=== PATIENT | female | born 1990 | race Asian ===

== ENCOUNTER → 2017-02-04 | Outpatient (CLI) | payer OTHER ==
[~2017-02-04] MED LIST: ALBU17IN2 INH; LEVA750T7 PO; MUCI600T37 PO; NAPRPOW4 PO; TRAZ50TA2 PO; VENLAFAXINE PO
[2017-02-04 13:12] LABS: ESTRADIOL 33.9 PG/ML; LUTEINIZING HORMONE 9.1 mIU/mL
== END ==
LOC: M LRY 08:09
PROVIDERS: ATTEND Obstetrics & Gynecology Reproductive Endocrinology
DX: N97.9 Female infertility, unspecified (principal)

== ENCOUNTER → 2017-02-27 | Outpatient (CLI) | payer OTHER ==
[2017-02-27 11:33] LABS: HCG, SERUM QUANTITATIVE < 1.0 MIU/ML
[2017-02-27 12:20] LABS: ESTRADIOL 30.1 PG/ML
== END ==
LOC: M LRY 08:31
PROVIDERS: ATTEND Obstetrics & Gynecology Reproductive Endocrinology
DX: N97.9 Female infertility, unspecified (principal)

== ENCOUNTER → 2017-03-09 | Outpatient (CLI) | payer OTHER ==
[2017-03-09 12:49] LABS: ESTRADIOL 100.7 PG/ML; LUTEINIZING HORMONE 6.9 mIU/mL
== END ==
LOC: M LRY 09:44
PROVIDERS: ATTEND Obstetrics & Gynecology Reproductive Endocrinology
DX: N97.9 Female infertility, unspecified (principal)

== ENCOUNTER → 2017-03-11 | Outpatient (CLI) | payer OTHER ==
[2017-03-11 11:57] LABS: LUTEINIZING HORMONE 80.6 mIU/mL
[2017-03-11 11:58] LABS: ESTRADIOL 242.7 PG/ML
== END ==
LOC: M LRY 08:06
PROVIDERS: ATTEND Obstetrics & Gynecology Reproductive Endocrinology
DX: N97.9 Female infertility, unspecified (principal)

== ENCOUNTER → 2017-03-27 | Outpatient (CLI) | payer OTHER | LOC: M LRY 08:39 | PROVIDERS: ATTEND Obstetrics & Gynecology Reproductive Endocrinology | DX: Z32.00 Encounter for pregnancy test, result unknown (principal) ==

== ENCOUNTER → 2017-03-30 | Outpatient (CLI) | payer OTHER ==
[2017-03-30 12:54] LABS: ESTRADIOL 36.8 PG/ML
[2017-03-30 13:06] LABS: HCG, SERUM QUANTITATIVE < 1.0 MIU/ML
== END ==
LOC: M LRY 09:15
PROVIDERS: ATTEND Obstetrics & Gynecology Reproductive Endocrinology
DX: N97.9 Female infertility, unspecified (principal)

== ENCOUNTER → 2017-04-08 | Outpatient (CLI) | payer OTHER ==
[2017-04-08 11:55] LABS: LUTEINIZING HORMONE 8.2 mIU/mL
[2017-04-08 11:56] LABS: ESTRADIOL 33.1 PG/ML
== END ==
LOC: M LRY 07:51
PROVIDERS: ATTEND Obstetrics & Gynecology Reproductive Endocrinology
DX: N97.9 Female infertility, unspecified (principal)

== ENCOUNTER → 2017-04-13 | Outpatient (CLI) | payer OTHER ==
[2017-04-13 11:35] LABS: LUTEINIZING HORMONE 66.3 mIU/mL
== END ==
LOC: M LRY 09:24
PROVIDERS: ATTEND Obstetrics & Gynecology Reproductive Endocrinology
DX: N97.9 Female infertility, unspecified (principal)

== ENCOUNTER → 2017-05-11 | Outpatient (CLI) | payer OTHER ==
[2017-05-11 12:04] LABS: LUTEINIZING HORMONE 10.6 mIU/mL
== END ==
LOC: M LRY 08:56
PROVIDERS: ATTEND Obstetrics & Gynecology Reproductive Endocrinology
DX: N97.9 Female infertility, unspecified (principal)

== ENCOUNTER → 2017-05-14 | Outpatient (CLI) | payer OTHER ==
[2017-05-14 11:52] LABS: ESTRADIOL 49.7 PG/ML; LUTEINIZING HORMONE 10.3 mIU/mL
== END ==
LOC: M LRY 08:31
PROVIDERS: ATTEND Obstetrics & Gynecology Reproductive Endocrinology
DX: N97.9 Female infertility, unspecified (principal)

== ENCOUNTER → 2017-05-18 | Outpatient (CLI) | payer OTHER ==
[2017-05-18 12:03] LABS: ESTRADIOL 78.8 PG/ML; LUTEINIZING HORMONE 11.8 mIU/mL
== END ==
LOC: M LRY 09:32
PROVIDERS: ATTEND Obstetrics & Gynecology Reproductive Endocrinology
DX: N97.9 Female infertility, unspecified (principal)

== ENCOUNTER → 2017-05-20 | Outpatient (CLI) | payer OTHER ==
[2017-05-20 12:11] LABS: LUTEINIZING HORMONE 68.3 mIU/mL
[2017-05-20 12:12] LABS: ESTRADIOL 148.2 PG/ML
== END ==
LOC: M LRY 08:01
PROVIDERS: ATTEND Obstetrics & Gynecology Reproductive Endocrinology
DX: N97.9 Female infertility, unspecified (principal)

== ENCOUNTER → 2017-06-03 | Outpatient (CLI) | payer OTHER | LOC: M LRY 09:26 | PROVIDERS: ATTEND Obstetrics & Gynecology Reproductive Endocrinology | DX: Z32.00 Encounter for pregnancy test, result unknown (principal) ==

== ENCOUNTER → 2017-09-01 | Outpatient (CLI) | payer OTHER ==
[2017-09-01 10:56] LABS: HCG, SERUM QUANTITATIVE < 1.0 MIU/ML
[2017-09-01 11:47] LABS: PROGESTERONE 0.5 NG/ML
== END ==
LOC: M LRY 07:49
DX: N97.9 Female infertility, unspecified (principal)

== ENCOUNTER → 2017-09-11 | Outpatient (CLI) | payer OTHER ==
[2017-09-11 11:55] LABS: HCG, SERUM QUANTITATIVE < 1.0 MIU/ML
[2017-09-11 12:24] LABS: ESTRADIOL 39.3 PG/ML
== END ==
LOC: M LRY 07:47
DX: N97.9 Female infertility, unspecified (principal)
CPT/HCPCS: 84702

== ENCOUNTER → 2017-09-15 | Outpatient (CLI) | payer OTHER ==
[2017-09-15 11:59] LABS: LUTEINIZING HORMONE 6.3 mIU/mL
[2017-09-15 11:59] LABS: ESTRADIOL 74.2 PG/ML
== END ==
LOC: M LRY 07:47
DX: N97.9 Female infertility, unspecified (principal)
CPT/HCPCS: 83002

== ENCOUNTER → 2017-09-18 | Outpatient (CLI) | payer OTHER ==
[2017-09-18 12:27] LABS: LUTEINIZING HORMONE 5.2 mIU/mL
[2017-09-18 12:27] LABS: ESTRADIOL 121.7 PG/ML
== END ==
LOC: M LRY 07:47
DX: N97.9 Female infertility, unspecified (principal)

== ENCOUNTER → 2017-09-21 | Outpatient (CLI) | payer OTHER ==
[2017-09-21 11:58] LABS: LUTEINIZING HORMONE 7.8 mIU/mL
[2017-09-21 11:59] LABS: ESTRADIOL 343.2 PG/ML
== END ==
LOC: M LRY 07:37
DX: N97.9 Female infertility, unspecified (principal)

== ENCOUNTER → 2017-10-08 | Outpatient (CLI) | payer OTHER ==
[2017-10-08 11:36] LABS: HCG, SERUM QUANTITATIVE < 1.0 MIU/ML
== END ==
LOC: M LRY 07:32
DX: Z32.00 Encounter for pregnancy test, result unknown (principal)
CPT/HCPCS: 84702

== ENCOUNTER → 2017-10-09 | Outpatient (CLI) | payer OTHER ==
[2017-10-09 12:24] LABS: HCG, SERUM QUANTITATIVE < 1.0 MIU/ML
== END ==
LOC: M LRY 07:42
DX: N97.9 Female infertility, unspecified (principal)
CPT/HCPCS: 84702

== ENCOUNTER → 2017-10-13 | Outpatient (CLI) | payer OTHER ==
[2017-10-13 11:26] LABS: LUTEINIZING HORMONE 2.2 mIU/mL
[2017-10-13 11:26] LABS: ESTRADIOL 49.7 PG/ML
== END ==
LOC: M LRY 08:05
DX: N97.9 Female infertility, unspecified (principal)
CPT/HCPCS: 83002

== ENCOUNTER → 2017-10-16 | Outpatient (CLI) | payer OTHER ==
[2017-10-16 12:01] LABS: LUTEINIZING HORMONE 3.3 mIU/mL
[2017-10-16 12:03] LABS: ESTRADIOL 57.5 PG/ML
== END ==
LOC: M LRY 07:27
DX: N97.9 Female infertility, unspecified (principal)

== ENCOUNTER → 2017-10-19 | Outpatient (CLI) | payer OTHER ==
[2017-10-19 11:47] LABS: LUTEINIZING HORMONE 3.8 mIU/mL
[2017-10-19 11:48] LABS: ESTRADIOL 144.2 PG/ML
== END ==
LOC: M LRY 07:34
DX: N97.9 Female infertility, unspecified (principal)
CPT/HCPCS: 83002

== ENCOUNTER → 2017-10-21 | Outpatient (CLI) | payer OTHER ==
[2017-10-21 12:27] LABS: LUTEINIZING HORMONE 4.8 mIU/mL
[2017-10-21 12:28] LABS: ESTRADIOL 330.3 PG/ML
== END ==
LOC: M LRY 07:58
DX: N97.9 Female infertility, unspecified (principal)
CPT/HCPCS: 83002

== ENCOUNTER → 2017-10-23 | Outpatient (CLI) | payer OTHER ==
[2017-10-23 12:00] LABS: LUTEINIZING HORMONE 9.5 mIU/mL
[2017-10-23 12:01] LABS: ESTRADIOL 783.4 PG/ML
== END ==
LOC: M LRY 08:41
DX: N97.9 Female infertility, unspecified (principal)
CPT/HCPCS: 83002

== ENCOUNTER → 2017-11-09 | Outpatient (CLI) | payer OTHER | LOC: M LRY 10:28 | DX: N97.9 Female infertility, unspecified (principal) ==

== ENCOUNTER → 2018-03-22 | Outpatient (CLI) | payer OTHER ==
[2018-03-22 12:24] LABS: HCG, SERUM QUANTITATIVE 13577 MIU/ML
[2018-03-22 13:44] LABS: ESTRADIOL 3142.4 PG/ML
[2018-03-22 13:44] LABS: PROGESTERONE 102.5 NG/ML
== END ==
LOC: M LRY 08:08
DX: O09.00 Supervision of pregnancy with history of infertility, unspecified trimester (principal); Z3A.00 Weeks of gestation of pregnancy not specified
CPT/HCPCS: 84443

== ENCOUNTER → 2018-03-29 | Outpatient (CLI) | payer OTHER ==
[2018-03-29 14:31] LABS: ESTRADIOL 2943.4 PG/ML
[2018-03-29 14:31] LABS: PROGESTERONE 70.7 NG/ML
[2018-03-29 14:37] LABS: CONTROL LINE HCG INT CTR LINE PRESENT; HCG, SERUM QUALITATIVE POSITIVE (NEGATIVE)
== END ==
LOC: M LRY 08:32
DX: O09.00 Supervision of pregnancy with history of infertility, unspecified trimester (principal)
CPT/HCPCS: 84443

== ENCOUNTER → 2018-04-06 | Outpatient (CLI) | payer OTHER ==
[2018-04-06 13:01] LABS: HCG, SERUM QUANTITATIVE 41976 MIU/ML
[2018-04-06 13:06] LABS: PROGESTERONE 58.1 NG/ML
[2018-04-06 13:07] LABS: ESTRADIOL 2755.9 PG/ML
== END ==
LOC: M LRY 08:39
DX: O09.00 Supervision of pregnancy with history of infertility, unspecified trimester (principal)

== ENCOUNTER 2018-05-04 18:37 | Emergency (ER) | payer OTHER ==
[2018-05-04 19:52] LABS: BASO # 0.1 10^3/uL (0.0-0.2); BASO % 0.4 % (0.0-1.0); EOS % 0.3 % (0.0-3.0); HEMOGLOBIN 9.8 g/dl (12.0-15.5); IMMATURE GRANULOCYTE % 0.4 % (0-3.0); LYMPH # 2.4 10^3/uL (1.5-6.5); LYMPH % 18.9 % (24.0-44.0); MEAN CORPUSCULAR HEMOGLOBIN 19.9 pg (27.0-33.0); MEAN CORPUSCULAR HGB CONC 33.8 g/dl (32.0-36.5); MEAN CORPUSCULAR VOLUME 58.9 fl (80.0-96.0); MONO # 0.9 10^3/uL (0.0-0.8); MONO % 7.1 % (0.0-5.0); NEUTROPHILS # 9.4 10^3/uL (1.8-7.7); NEUTROPHILS % 72.9 % (36.0-66.0); PLATELET COUNT, AUTOMATED 245 10^3/uL (150-450); RED BLOOD COUNT 4.92 10^6/uL (4.00-5.40); RED CELL DISTRIBUTION WIDTH 15.2 % (11.5-14.5); WHITE BLOOD COUNT 12.9 10^3/uL (4.0-10.0)
[2018-05-04 19:56] LABS: ANION GAP 12 MEQ/L (8-16); BLOOD UREA NITROGEN 7 MG/DL (7-18); CALCIUM LEVEL 9.4 MG/DL (8.5-10.1); CARBON DIOXIDE LEVEL 22 MEQ/L (21-32); CHLORIDE LEVEL 104 MEQ/L (98-107); CREATININE FOR GFR 0.62 MG/DL (0.55-1.30); GLOMERULAR FILTRATION RATE > 60.0 (>60); GLUCOSE, FASTING 102 MG/DL (70-100); POTASSIUM SERUM 3.8 MEQ/L (3.5-5.1); SODIUM LEVEL 138 MEQ/L (136-145)
== END 2018-05-04 20:42 | disposition home or self-care (01) ==
LOC: M ED 18:37
DX: O20.9 Hemorrhage in early pregnancy, unspecified (principal); O99.011 Anemia complicating pregnancy, first trimester; O99.341 Other mental disorders complicating pregnancy, first trimester; F41.9 Anxiety disorder, unspecified; F32.9 Major depressive disorder, single episode, unspecified; F43.10 Post-traumatic stress disorder, unspecified; Z3A.12 12 weeks gestation of pregnancy
CPT/HCPCS: 76801

== ENCOUNTER → 2018-05-24 | Outpatient (CLI) | payer OTHER | LOC: M EKG 11:05 | DX: Z3A.12 12 weeks gestation of pregnancy (principal); O24.111 Pre-existing type 2 diabetes mellitus, in pregnancy, first trimester | CPT/HCPCS: 93005 ==

== ENCOUNTER 2018-07-15 22:21 | Outpatient (CLI) | payer OTHER ==
[~2018-07-15] VITALS: Ht 154.9 cm; Wt 76.3 kg
[~2018-07-15 22:21] MED LIST changes: +FERR325T18 PO; +PRENCHW PO; +SERT25TA88 PO
[2018-07-15 22:27] VITALS: BP 128/91
[2018-07-15] MEDS ORDERED: LR 1,000 ML IV SCH (23:18)
[2018-07-15] MEDS ORDERED: LACTATED RINGER'S 1000 ML IV STA (23:18)
[2018-07-16 00:07] LABS: HEMATOCRIT 25.8 % (36.0-47.0); HEMOGLOBIN 8.8 g/dl (12.0-15.5); MEAN CORPUSCULAR HEMOGLOBIN 21.2 pg (27.0-33.0); MEAN CORPUSCULAR HGB CONC 34.1 g/dl (32.0-36.5); PLATELET COUNT, AUTOMATED 169 10^3/uL (150-450); RED BLOOD COUNT 4.16 10^6/uL (4.00-5.40); WHITE BLOOD COUNT 10.8 10^3/uL (4.0-10.0)
[2018-07-16 00:08] LABS: INR 0.9; PROTHROMBIN TIME 12.2 SECONDS (12.1-14.4)
[2018-07-16 00:09] LABS: PARTIAL THROMBOPLASTIN TIME 25.3 SECONDS (25.4-37.6)
--- NOTE | 2018-07-16 01:25 | REPVR ---
EXAM: US Doppler Velocimetry of the Umbilical Artery EXAM DATE/TIME: 07/15/2018 12:35 AM CLINICAL HISTORY: 28 years old, female; Signs and symptoms; Lmp or gestational age (in weeks): 23w 0d; Other: Vaginal bleeding; ; Patient HX: Patient has known previa, iugr, and oligo; Additional info: 22w6d oligo/iugr bleed w/previa/ please perform growth scan TECHNIQUE: US Doppler velocimetry of the umbilical artery with Doppler color and waveform analysis. COMPARISON: No relevant prior studies available. FINDINGS: Umbilical artery Doppler: Umbilical artery is not well seen. Umbilical artery waveforms: Waveforms are within normal limits for age. Umbilical artery systolic to diastolic ratio: S./D. ratio is 3.7. IMPRESSION: Unremarkable umbilical Doppler for age. EXAM: US Doppler Velocimetry of the Middle Cerebral Artery EXAM DATE/TIME: 07/15/2018 12:35 AM CLINICAL HISTORY: 28 years old, female; Signs and symptoms; Lmp or gestational age (in weeks): 23w 0d; Other: Vaginal bleeding; ; Patient HX: Patient has known previa, iugr, and oligo; Additional info: 22w6d oligo/iugr bleed w/previa/ please perform growth scan TECHNIQUE: US Doppler velocimetry of the middle cerebral artery with Doppler color and waveform analysis. COMPARISON: No relevant prior studies available. FINDINGS: Middle cerebral arteries: Middle cerebral arteries are patent. MCA peak systolic velocity: Peak systolic velocity is within normal limits for age. Peak systolic velocity is 32 cm/s. S/D. ratio is 4.4. IMPRESSION: Unremarkable middle cerebral artery Doppler for age. EXAM: US After First Trimester, Transabdominal EXAM DATE/TIME: 07/15/2018 12:35 AM CLINICAL HISTORY: 28 years old, female; Signs and symptoms; Lmp or gestational age (in weeks): 23w 0d; Other: Vaginal bleeding; ; Patient HX: Patient has known previa, iugr, and oligo; Additional info: 22w6d oligo/iugr bleed w/previa/ please perform growth scan TECHNIQUE: Real-time transabdominal obstetrical ultrasound of the maternal pelvis and a second or third trimester with image documentation. COMPARISON: 05/04/2018. FINDINGS: GESTATION: Gestation: Single live intrauterine gestation. Heart rate: heart rate measures 163 beats per minute. Presentation: Breech position. Placenta: Placenta is anterior. Complete placenta previa. Amniotic fluid: Anhydramnios. MALLIKA is 0.8. Head, face, and neck: Lateral ventricles are unremarkable. Remaining anatomy is limited. Heart: Heart is obscured by position. Abdomen: Bladder is unremarkable. Stomach is unremarkable. Umbilical cord and insertion: Umbilical cord insertion is obscured by position. Spine: Spinal anatomy is obscured by position. Extremities: Extremities are obscured by position. BIOMETRY: Estimated gestational age: Estimated gestational age 18 weeks 3 days days by ultrasound. Estimated due date: Estimated date 11/12/2018 AUA. Estimated weight: Estimated weight is 233 g. Less than 3 percentile. Biparietal diameter: BPD is 41 mm. 18 weeks 4 days. Head circumference: Head circumference is 163 mm. 19 weeks 1 day. Abdominal circumference: 127 mm. 18 weeks 2 days. Femur length: Femur length is 27 mm. 18 weeks 1 day. MATERNAL: Uterus: Unremarkable. Cervix: Cervix measures 3.8 cm in length the cervix is long and closed. Ovaries: Left ovary measures 3.4 x 2.3 x 2.6 cm. Right ovary measures 3.4 x 1.7 cm. Ovaries appear unremarkable. IMPRESSION: Single live intrauterine gestation. Estimated gestational age is 18 weeks 3 days days by ultrasound. Estimated weight is 233 g. Less than expected interval growth from the prior study. Consistent with symmetric intrauterine growth restriction. Anhydramnios. Evaluation of the anatomy is limited by position and lack of amniotic fluid. Complete placenta previa. COMMENT: Verbally discussed with Dr. Mcgregor at 07/16/2018 1:20 AM EST. Electronically signed by: James Frias On 07/16/2018 01:25:01 AM
--- NOTE | 2018-07-16 02:52 | IPNPDOC ---
Text Note Date of Service The patient was seen on 07/16/18. 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 She notes that she was in the shower when blood gushed from her vagina and went down her legs. She started to panic and continued to saturate bright blood onto a pad, so ambulance was called. Bleeding was painless. She notes no contractions. No f/c/n/v. No trauma. PMhx significant for Class B diabetes well controlled without medications, Hgb E (FOB negative), Anemia taking iron, PTSD taking zoloft. [id number] testing in this was negative Vitals wnl, afebrile General: WDWN, resting in bed NAD Abdomen: soft, gravid, NTTP Extremities: significant blood streaks down both legs present SSE (RN as entry level chemist): blood was so matted into pubic hair that speculum could not be placed initially until warm water could be wiped well enough into the area to release the hairs, otherwise NEFG. Dark blood pooled in vaginal vault and large 6cm sized clot was removed, residual blood wiped away to visualize cervix which was visually thick and closed with no brisk or active bleeding TAUS bedside: SIUP with +FCA and +FM, severe oligo visually, placenta anterior/covering cervix but no blood visualized behind placenta Bell: no ctx Doptones: positive Radiology: TAUS 07/16/18 IMPRESSION: Single live intrauterine gestation. Estimated gestational age is 18 weeks 3 days days by ultrasound. Estimated weight is 233 g. Less than expected interval growth from the prior study. Consistent with symmetric intrauterine growth restriction. Anhydramnios. Evaluation of the anatomy is limited by position and lack of amniotic fluid. Complete placenta previa. 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 Initial labs are stable, other than change in H/H and plt from March until now (patient taking iron, but H/H is lower). Cervix visually closed and also noted closed on formal growth scan done tonight. Bleeding minimal over the last few hours. Continued cardiac activity, but GS re-demonstrates severe IUGR and anhydramnios (<3%ile, 233g) which carries a poor prognosis. Plan: -Will continue to observe overnight -If bleeding picks up again, would repeat coags -She received 1L IVF bolus and is tolerating PO intake -consistent carb diet, qid fingersticks -Vitals q4hr -Qshift mee Mcgregor MD VS,Cherri, I+O VS, Cherri, I+O Laboratory Tests 07/15/18 23:39 Red Blood Count 4.16, Mean Corpuscular Volume 62.0 L, Mean Corpuscular Hemoglob in 21.2 L, Mean Corpuscular Hemoglobin Concent 34.1, Red Cell Distribution Width 16.5 H Vital Signs Date Time Temp Pulse Resp B/P (MAP) Pulse Ox O2 Delivery O2 Flow Rate FiO2 07/15/18 22:27 98.6 93 20 128/91 (103) I&O- Last 24 Hours up to 6 AM 07/16/18 06:00 Intake Total 1125 ml Balance 1125 ml Calli Mcgregor MD Jul 16, 2018 01:47
[2018-07-16 08:02] VITALS: BP 136/83
[2018-07-16 08:31] LABS: HEMATOCRIT 23.9 % (36.0-47.0); HEMOGLOBIN 8.1 g/dl (12.0-15.5); MEAN CORPUSCULAR HGB CONC 33.9 g/dl (32.0-36.5); MEAN CORPUSCULAR VOLUME 61.9 fl (80.0-96.0); PLATELET COUNT, AUTOMATED 160 10^3/uL (150-450); RED BLOOD COUNT 3.86 10^6/uL (4.00-5.40); WHITE BLOOD COUNT 8.6 10^3/uL (4.0-10.0)
--- NOTE | 2018-07-16 08:59 | IPNPDOC ---
Text Note Date of Service The patient was seen on 07/16/18. 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 Preg c/b known severe IUGR and oligohydramnios as diagnosed on her anatomy scan, as well as complete placenta previa with significant vaginal bleeding presumably related to placenta previa. Initial hct 25.8, hct now 23.9. Cervix was visually closed and also noted closed on formal growth scan done last night. Pelvic exam not repeated by myslef, no need and would add possibly further risk to a known previa. Bleeding has been minimal since midnight and desires discharge. Unfortunately, the US re-demonstrates severe IUGR and anhydramnios (<3%ile, 233g) which carries a poor prognosis. Discharge to home, will continue her Fe TID and Vit C, strict rtn bleeding precautions. FHR 145 on discharge. Sessions VS,Cherri, I+O VSCherri I+O Laboratory Tests 07/15/18 23:39 Red Blood Count 4.16, Mean Corpuscular Volume 62.0 L, Mean Corpuscular Hemoglobin 21.2 L, Mean Corpuscular Hemoglobin Concent 34.1, Red Cell Distribution Width 16.5 H 07/16/18 08:20 Red Blood Count 3.86 L, Mean Corpuscular Volume 61.9 L, Mean Corpuscular Hemoglobin 21.0 L, Mean Corpuscular Hemoglobin Concent 33.9, Red Cell Distribution Width 16.5 H Vital Signs Date Time Temp Pulse Resp B/P (MAP) Pulse Ox O2 Delivery O2 Flow Rate FiO2 07/15/18 22:27 98.6 93 20 128/91 (103) I&O- Last 24 Hours up to 6 AM 07/16/18 06:00 Intake Total 1125 ml Balance 1125 ml SESSIONS,STEFFEN Murcia MD Jul 16, 2018 08:59
[2018-07-16] MEDS ORDERED: SERTRALINE HCL 25 MG TABLET PO ONE (09:00)
== END 2018-07-16 09:40 | disposition home or self-care (01) ==
LOC: M LDO 22:21
PROVIDERS: ATTEND Obstetrics & Gynecology
DX: O26.853 Spotting complicating pregnancy, third trimester (principal); O36.5990 Maternal care for other known or suspected poor fetal growth, unspecified trimester, not applicable or unspecified; O41.8X90 Other specified disorders of amniotic fluid and membranes, unspecified trimester, not applicable or unspecified; F43.12 Post-traumatic stress disorder, chronic; Z3A.23 23 weeks gestation of pregnancy; D64.9 Anemia, unspecified; O99.342 Other mental disorders complicating pregnancy, second trimester; O99.012 Anemia complicating pregnancy, second trimester
CPT/HCPCS: 36415; 59025; 76811; 76820; 76821; 85027; 85384; 85460; 85610; 85730; 86850; 86900; 86901; G0378; G0463

== ENCOUNTER → 2018-08-11 | Outpatient (REF) | payer OTHER | LOC: M LAB REF 13:40 | PROVIDERS: ATTEND Physician Assistant | DX: J02.9 Acute pharyngitis, unspecified (principal) ==

== ENCOUNTER 2018-09-02 22:31 | Inpatient (IN) | payer OTHER ==
[~2018-09-02] VITALS: Ht 154.9 cm; Wt 79.0 kg
[2018-09-02 22:25] VITALS: BP 138/93
[2018-09-02 22:50] VITALS: BP 126/81
[2018-09-02] MEDS ORDERED: LR 1,000 ML IV SCH ×2 (22:56→23:00)
[2018-09-02] MEDS ORDERED: LACTATED RINGER'S 1000 ML IV STA (22:56)
[2018-09-02] MEDS ORDERED: MAG Sulf (L&D) 4 GM/100 ML 4 GM in APPROPRIATE DILUENT 1 EA IV ONE (23:00)
[2018-09-02] MEDS ORDERED: BETAMETHASONE SOLUSPAN 6MG/ML INJ 5ML (J0702) IM SCH (23:00)
[2018-09-02] MEDS ORDERED: CALCIUM GLUCONATE 1,000 MG in D5W MINI-BAG PLUS 100 ML IV PRN (23:00)
[2018-09-02] MEDS ORDERED: MAG Sulf (OBGYN) 20GM/500ML 20,000 MG in APPROPRIATE DILUENT 1 EA IV SCH (23:00)
[2018-09-02] MEDS ORDERED: PENICILLIN G POTASSIUM IV 5 MU in D5W MINI-BAG PLUS 100 ML IV STA (23:06)
[2018-09-02] MEDS ORDERED: OXYTOCIN 30 UNITS IN 0.9% NaCl 500ML IV BAG (J2590) As Ordered ONE (23:36)
[2018-09-02 23:40] LABS: HEMATOCRIT 29.7 % (36.0-47.0); MEAN CORPUSCULAR HEMOGLOBIN 22.2 pg (27.0-33.0); MEAN CORPUSCULAR HGB CONC 33.7 g/dl (32.0-36.5); PLATELET COUNT, AUTOMATED 165 10^3/uL (150-450); WHITE BLOOD COUNT 13.3 10^3/uL (4.0-10.0)
[2018-09-03] VITALS (7 sets, daily range): BP systolic 95–143; BP diastolic 50–87
[2018-09-03] MEDS ORDERED: ceFAZolin 1GM INJ (J0690 PER 500MG) As Ordered ONE (00:31)
[2018-09-03] MEDS ORDERED: OXYTOCIN INJ 10 UNITS/ML VIAL (J2590) As Ordered ONE (00:33)
[2018-09-03] MEDS ORDERED: SUCCINYLCHOLINE 100 MG/5 ML SYRINGE (J0330) As Ordered ONE (00:39)
[2018-09-03] MEDS ORDERED: PROPOFOL 200 MG/20 ML VIAL As Ordered ONE (00:39)
[2018-09-03] MEDS ORDERED: fentaNYL 100 MCG/2 ML INJECTION (J3010) As Ordered ONE ×3 (00:42→02:46)
[2018-09-03] MEDS ORDERED: dexameTHASONE 4 MG/ML 1ML VIAL (J1100) As Ordered ONE (00:46)
[2018-09-03] MEDS ORDERED: ONDANSETRON 4MG/2ML VIAL (J2405) As Ordered ONE (00:46)
[2018-09-03] MEDS ORDERED: KETOROLAC 60 MG/2 ML VIAL (J1885) As Ordered ONE (00:49)
[2018-09-03 01:14] LABS: CORD GAS ABE V -9.4; CORD GAS HCO3 V 17.1 MEQ/L; CORD GAS O2 SAT V 98.2 %; CORD GAS PCO2 V 39.5 mmHg; CORD GAS PH V 7.255 UNITS; CORD GAS PO2 V 102.8 mmHg; CORD GAS TCO2 V 18.3 MEQ/L
[2018-09-03] MEDS ORDERED: BUPIVACAINE HCL 0.25% 10 ML VIAL As Ordered ONE (01:24)
[2018-09-03] MEDS ORDERED: HYDROMORPHONE HCL 0.5 MG/ 0.5 ML SYRINGE (J1170 PER 1) IV PRN (01:30)
[2018-09-03] MEDS ORDERED: KETOROLAC 30 MG/ML VIAL (J1885) IV PRN (01:30)
[2018-09-03] MEDS ORDERED: PERCOCET 5MG/325MG TAB PO PRN (01:30)
[2018-09-03] MEDS ORDERED: ONDANSETRON 4MG/2ML VIAL (J2405) IV PRN ×2 (01:30→02:15)
[2018-09-03] MEDS ORDERED: NALBUPHINE HCL 10 MG/ML AMP (J2300) IV PRN ×2 (01:30→02:30)
[2018-09-03] MEDS ORDERED: diphenhydrAMINE INJ 50MG/ML VIAL (J1200) IV PRN ×2 (01:30→02:30)
[2018-09-03] MEDS: MEPERIDINE INJ 25 MG/ML VIAL (J2175) IV PRN ×2 (02:13→02:20)
[2018-09-03] MEDS ORDERED: MEPERIDINE INJ 25 MG/ML VIAL (J2175) As Ordered ONE (02:14)
[2018-09-03] MEDS ORDERED: PERCOCET 5MG/325MG TAB As Ordered ONE (02:14)
[2018-09-03] MEDS ORDERED: BUPIVACAINE HCL 0.25% 10 ML VIAL INFIL ONE (02:15)
[2018-09-03] MEDS ORDERED: MEASLES,MUMPS,RUBELLA VACCINE INJ (MMR-II) (90707) SC SCH (02:15)
[2018-09-03] MEDS ORDERED: RHOGAM 300 MCG (1500 IU) INJ (J2790) IM SCH (02:15)
[2018-09-03] MEDS: NS 1,000 ML IV SCH (02:16)
[2018-09-03] MEDS ORDERED: NALOXONE INJ 0.4 MG/1 ML VIAL (J2310) IV PRN (02:30)
[2018-09-03] MEDS ORDERED: MORPHINE 1MG/ML IN 0.9% NACL 100ML IV BAG IV PRN (02:30)
[2018-09-03] MEDS ORDERED: EPIDURAL/PCA KEYS XX PRN (02:30)
[2018-09-03] MEDS ORDERED: MORPHINE 1MG/ML IN 0.9% NACL 100ML IV BAG As Ordered ONE (02:49)
[2018-09-03] MEDS: fentaNYL 100 MCG/2 ML INJECTION (J3010) IV PRN ×2 (03:00→03:06)
--- NOTE | 2018-09-03 03:17 | HPEPDOC ---
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 She endorses having intercourse the evening prior and over the course of the day had some cramping on and off. No trauma. Feels good movement. No leaking of fluid other than blood. No n/v/f/c. Chief Complaint: Contractions, pre-term, Vaginal Bleeding Information Provided By: Patient Care Care: Good Care Dating Final EDC: November 12, 2018 Final EDC by: 1st trimester (US) (IVF dating) Antepartum Course Diagnos(e)s Most significantly, there was diagnosis at time of anatomy scan of asymmetric severe IUGR, oligohydramnios and placenta previa for which the patient was being cared for at [facility] as well as [facility]. At 26wk, ultrasound at [facility] showed placenta previa resolved and oligo resolved. However, at that time, echogenic bowel was noted for which TORCH testing was done (results not available in chart). echo was wnl. The patient was then being followed by dopplers and ultrasounds since EFW was >600g. course also significant for Class B diabetes discovered with early 3hr GTT that was performed for BMI 32 (Class 1 obesity). Diabetes was managed with diet alone. Patient also found to have Hgb E (FOB neg) and anemia treated with iron. She has PTSD/anxiety/depression treated with zoloft. This was the result of IVF. 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 history Past Medical History Medical History PTSD/anxiety/depression, starting BMI 32 (Class 1 obesity), Hgb E, anemia Surgical History: Denies/None Family History Significant Family History: No pertinent family hx Social History Marital Status: Family situation: Spouse/partner home Psychosocial History: Anxiety, Depression, PTSD * Smoker: non-smoker Alcohol: Denies Drugs: denies Imunizations Influenza Status: current Allergies Coded Allergies: No Known Drug Allergy (Verified Allergy, Unknown, 12/19/13) Medications Scheduled (Sertraline HCl) 25 Mg Tab, 3 TAB PO DAILY Ferrous Sulfate (Ferosul) 325 Mg Tab, 1 TAB PO TID Multivitamins/ ( 19) 1 Chw Chw, 1 TAB PO DAILY Physical Examination Physical Examination GENERAL: Alert and oriented times three. ABDOMEN: Gravid and non-tender to touch. FETUS: Is cephalic by TAUS EXTREMITIES: No edema of BLE SSE: some medium sized blood clots in the vagina, cervical os difficult to see due to patient intolerance of exam and obscuring blood. Blood-saturated thick nisa pad was removed to perform the exam Vital Signs/I&O Vital Signs Date Time Temp Pulse Resp B/P (MAP) Pulse Ox O2 Delivery O2 Flow Rate FiO2 09/03/18 02:25 97.4 119 18 142/82 (102) 98 09/03/18 01:55 2 I&O- Last 24 Hours up to 6 AM 09/03/18 06:00 Intake Total 1700 ml Output Total 500 ml Balance 1200 ml Laboratory Data 24H LABS Laboratory Tests 2 09/02/18 23:05: Serology Scanned Report Hepatitis B Testing 09/02/18 23:15: Nucleated Red Blood Cells % (auto) 1.4H 09/03/18 00:40: Cord Venous Blood pH 7.255, Cord Venous Blood PCO2 39.5, Cord Venous Blood PO2 102.8, Cord Venous Blood HCO3 17.1, Cord Venous Blood Total CO2 18.3, Cord Venous Base Excess (Actual) -9.4, Cord Venous Base Excess (Standard) 17.0, Cord Venous Blood Oxygen Saturation 98.2 CBC/BMP Laboratory Tests 09/02/18 23:15 Red Blood Count 4.50, Mean Corpuscular Volume 66.0 L, Mean Corpuscular Hemoglobin 22.2 L, Mean Corpuscular Hemoglobin Concent 33.7, Red Cell Distribution Width 15.3 H Microbiology Microbiology 09/02/18 Group B Streptococcus Screen (JESSE), Received Pending Pertinent Laboratoy Data Blood Type: B+ RBC Antibody Screen: Negative HIV: Negative Hepatitis B: Negative Hepatitis C: Unknown Rapid Plasma Reagin: Nonreactive Rubella: Immune Varicella: Immune Group B Streptococcus: Unknown Glucose Tolerance Test: 179 (104/185/149/123) Anatomy Ultrasound Ultrasound Date: Jun 18, 2018 Placenta Location: Anterior Normal Anatomy: Yes (very limited assessment due to severe IUGR, MALLIKA 1.3cm) Placenta Previa: Yes Other Ultrasounds 08/12/18: MALLIKA 11.6, 528g, anterior placenta no previa, cephalic, IUGR, bowel prominent, several echogenic foci noted inferior to heart and diaphragm around stomach with others scattered throughout liver. EIF in left ventricle of heart. Normal dopplers. Steroid Therapy Steroid Therapy: No Vaginal Examination Dilation: 4 cm Effacement: 90% Station: -2 Cervical Consistency: Soft Cervical Position: Anterior Presentation: Cephalic presentation Assessment Heart Rate (FHR): 150 Variability: Moderate Accelerations: Positive Decelerations: None (none on presentation, but deep recurrent decels began to occur after SROM ) Tocometer Contractions: Yes Frequency: regular, every 2-5 min. 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 Placenta previa was previously noted to have resolved on u/s. Fetus is cephalic today by TAUS. Cat I FHRT. GBS unknown. Vitals wnl. Significant bleeding noted on eval of nisa pad which was fully saturated, though no brisk bleeding came from cervix- just clot noted in vault on SSE . course/PMhx: Most significantly, there was diagnosis at time of anatomy scan of asymmetric severe IUGR, oligohydramnios and placenta previa for which the patient was being cared for at [facility] as well as [facility]. At 26wk, ultrasound at [facility] showed placenta previa resolved and oligo resolved. However, at that time, echogenic bowel was noted for which TORCH testing was done (results not available in chart). echo was wnl. The patient was then being followed by dopplers and ultrasounds since EFW was >600g. course also significant for Class B diabetes discovered with early 3hr GTT that was performed for BMI 32 (Class 1 obesity). Diabetes was managed with diet alone. Patient also found to have Hgb E (FOB neg) and anemia treated with iron. She has PTSD/anxiety/depression treated with zoloft. This was the result of IVF. Plan Admit and orient. Distribution Technician and consent. CEFM and toco Labs and intravenous (IV) per unit protocol. Lactated Ringers (LR): Bolus 1000 mL, then at 125 mL/hr. Betamethasone IM 12mg now IV MgSO4 4gm loading dose then 2gm per hour for neuro protection and initial tocolysis PCN for GBS prophylaxis since GBS unknown (GBS swab obtained) I discussed with the patient and that she was not stable for transfer to [place] at this time and will likely deliver soon, unfortunately the baby will need to be transferred to [place] upon delivery for further care. The couple was understanding. Dr. Hernandez aware of patient situation MD Meche Chow Katrina D MD Sep 03, 2018 03:17
[2018-09-03] MEDS ORDERED: PENICILLIN G POTASSIUM IV 2.5 MU in APPROPRIATE DILUENT 1 EA IV SCH (03:45)
--- NOTE | 2018-09-03 04:48 | REP ---
Clinical: Emergency section. Technique: A portable supine views of the abdomen and pelvis. Findings: Bowel gas pattern is nonspecific. No abnormal foreign body appreciated. Skeletal structures are intact. Impression: No foreign body. Electronically Signed by Isidro Rahman MD 09/03/2018 04:39 A
[2018-09-03] MEDS: KETOROLAC 30 MG/ML VIAL (J1885) IV SCH ×3 (07:02→18:31)
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
[2018-09-03] MEDS ORDERED: SERTRALINE HCL 25 MG TABLET PO SCH (09:00)
[2018-09-03] MEDS: PRENATAL VITAMINS CHEWABLE TABLET PO SCH (09:34)
[2018-09-03] MEDS: DOCUSATE SODIUM 100 MG CAP PO SCH ×2 (09:34→20:08)
--- NOTE | 2018-09-03 09:34 | RO ---
DATE OF OPERATION: 09/03/2018 STAFF SURGEON: Calli Mcgregor MD PROCESS CONTROLLER: Dr. Pippa Gresham PROCESS CONTROLLER ROLE: Exposure/retraction, assisted with delivery of the baby and subsequent closure of tissue layers. CLINICAL SERVICE: Obstetrics. INDICATIONS FOR OPERATION: Marine is a 28-year-old, (G) 2, now para (P) 0-1-1-1, who presented to labor and delivery via ambulance for very heavy vaginal bleeding. Speculum exam was done, which showed clot in the vault. She did have on a saturated bloody peripad. Cervical exam then showed she was 4 cm, 90% effaced, -2 station and that she was having regular painful contractions, so presumably the heavy vaginal bleeding was from active labor. Her course was significant for severe intrauterine growth restriction, as well as oligohydramnios and placenta previa that were noted at her routine anatomy scan. She was co-managed by [facility] [employer] and Scottie. She had repeat ultrasounds, which eventually at 26 weeks showed complete resolution of her placenta previa as well as her oligohydramnios. The baby did continue to have intrauterine growth restriction (IUGR) and on the 26-week ultrasound they were able to see prominent bowels and echogenic foci of the liver and underneath the diaphragm she had an echogenic intracardiac focus (EIF) in the left ventricle of the heart. Her was also complicated by anemia. She has hemoglobin E. The father of the baby is negative. She had an early 3-hour glucose tolerance test failure and was diagnosed with class B diabetes in early . The test was performed for a body mass index (BMI) is 32, which is class I obesity. She also has a history significant for posttraumatic stress disorder (PTSD), anxiety and depression, for which she takes Zoloft, and this was the result of in vitro fertilization. On admission, she immediately received 12 mg of intramuscular (IM) betamethasone for lung maturity and intravenous (IV) magnesium sulfate was started for neuroprotection as well as initial tocolytic, and she received penicillin for Group B streptococcus (GBS) unknown status. However, she very quickly progressed in labor from 4 cm and over an hour to 6 cm, and then she had spontaneous rupture of membranes that was clear. After that the heart rate tracing then became nonreassuring because she had deep recurrent heart rate decelerations down to the 50s, 60s cy. Given the intolerance to labor despite having cephalic presentation, I made the decision to perform an emergency section. PREOPERATIVE DIAGNOSES: 1. Active labor with heavy vaginal bleeding at 30 weeks gestation. 2. Nonreassuring heart tracing. 3. Severe intrauterine growth restriction. POSTOPERATIVE DIAGNOSES: 1. Active labor with heavy vaginal bleeding at 30 weeks gestation. 2. Nonreassuring heart tracing. 3. Severe intrauterine growth restriction. MATERIAL FORWARDED TO THE LAB FOR EXAMINATION: 1. Cord gases. 2. Placenta. DESCRIPTION OF FINDINGS: Male in cephalic presentation. score 1, 5, and 8. Weight 710 grams or 1 pound 9 ounces. Otherwise, normal appearing uterus, fallopian tubes and ovaries. INFECTION CLASSIFICATION: 2. ESTIMATED BLOOD LOSS: 500 mL. URINE OUTPUT: 600 mL yellow clear urine. IV FLUIDS: 700 mL. OPERATION PERFORMED: Crash primary low transverse section. DESCRIPTION OF OPERATION: The patient was wheeled urgently to the operating room. Dueñas catheter was already in place and she was receiving IV magnesium. She had been receiving penicillin and she was also given a dose of 2 grams IV Ancef prophylactically for the surgery. She was prepped with Betadine splash and draped. She received general endotracheal anesthesia. Dr. Hernandez had been aware of the situation, was in the labor room and came with us into the operating room. Pfannenstiel skin incision was made with the scalpel and carried down to the underlying layer of fascia. Fascia was incised in the midline and the incision was extended laterally with blunt dissection. Underlying rectus muscles were dissected off bluntly. Rectus muscles were in the midline and the peritoneum was entered digitally. Peritoneal incision was extended superiorly and inferiorly with good visualization of the bladder. Bladder blade was inserted and the lower uterine segment was scored in a transverse fashion with a scalpel. Uterus was entered bluntly and the incision was extended with traction. On entry to uterus, we encountered the anterior placenta. Bladder blade was removed and 's head was delivered atraumatically. The shoulders and corpus quickly followed and the umbilical cord was clamped times two and cut. The infant was immediately handed off to the awaiting pediatric team. Cord gases were obtained; only venous cord gas was successfully obtained. Placenta was then removed manually. Uterus was exteriorized and cleared of all clot and debris. The uterine incision was repaired with #0 Vicryl in a running locking fashion. A second layer of #0 Monocryl was used in imbricating fashion. Uterine incision was inspected and hemostasis was noted. Posterior cul-de-sac was irrigated and the uterus returned to the abdomen. Gutters were cleared of all clot. Peritoneum was closed using #3-0 Vicryl suture in a running fashion. Fascia was reapproximated with #0 Vicryl in a running fashion. He fascia was reapproximated using #3-0 Vicryl in a running fashion. Skin edges were reapproximated using three inverted interrupted stitches using #3-0 Vicryl suture, followed by a running subcuticular stitch using #4-0 Monocryl suture. Significantly, because there was no formal count done before the urgent surgery, we did have x-ray come up and perform an abdominopelvic x-ray prior to closing all of the layers after the fascia. There were no noted retained instruments or laparotomy sponges within the abdomen noted on x-ray, and then we proceeded with closure of the other layers. I injected 0.25% Marcaine underneath the incision to give her some long-acting local pain control. Incision was cleaned using a wet lap dried with a dry lap. Steri-Strips were applied in usual fashion perpendicular to the Pfannenstiel incision. The patient had a very long pubic hair that we struggled with during the entire case, so after closure of the skin I did a shave prep and manually removed all of the hairs that were very close to the incision to enhance healing for her. Telfa was layered on top of the Steri-Strips, followed by a dry sterile towel. The surgical drapes were removed. The sterile towel was removed and a pressure dressing was applied over the entire surgical incision. Vagina was cleared of all blood clot without active bleeding noted. The patient was awakened from general endotracheal anesthesia, and she tolerated the procedure well. She was taken to the postanesthesia care unit (PACU) to recover further and will be started on a morphine patient controlled analgesia (PORT SURVEYOR) for pain management.
[2018-09-03] MEDS ORDERED: ADACEL/BOOSTRIX VACCINE (DIPHTH/PERTUSS/ACELL/TETANUS)0.5ML SYR (90715) IM ONE (11:00)
[2018-09-03] MEDS ORDERED: ADACEL/BOOSTRIX VACCINE (DIPHTH/PERTUSS/ACELL/TETANUS)0.5ML SYR (90715) IM PRN (13:30)
[2018-09-03] MEDS: PERCOCET 5MG/325MG TAB PO PRN (20:09)
[2018-09-04 02:02] VITALS: BP 102/57
[2018-09-04] MEDS: NS 1,000 ML IV SCH (02:16)
[2018-09-04] MEDS ORDERED: IBUPROFEN 800 MG TAB PO SCH (03:00)
[2018-09-04 05:47] VITALS: BP 112/59
[2018-09-04] MEDS: PERCOCET 5MG/325MG TAB PO PRN (06:05)
--- NOTE | 2018-09-04 07:35 | DS.PDOC ---
Discharge Summary General Date of Admission Sep 02, 2018 at 22:56 Date of Discharge [id number] Discharge Summary ADMITTING DIAGNOSES: labor, NRFHT DISCHARGE DIAGNOSES: s/p emergent , GETA HOSPITAL COURSE: delivery uncomplicated. course uncomplicated. Baby at NICU in [place]. DISCHARGE MEDICATIONS: Motrin, Lanolin, Percocet, Colace DISCHARGE INSTRUCTIONS: Nothing in the vagina for 6 weeks. No driving for 2 weeks. No bathing for 4 weeks, shower only. F/U in OBGYN clinic in 1-2 weeks for incision check and check-up in 6-8 weeks. Sessions Vital Signs/I&Os Vital Signs Date Time Temp Pulse Resp B/P (MAP) Pulse Ox O2 Delivery O2 Flow Rate FiO2 09/04/18 06:35 16 09/04/18 05:47 97.7 104 112/59 (76) 100 09/03/18 03:06 2.0 I&O- Last 24 Hours up to 6 AM 09/04/18 06:00 Intake Total 1495 ml Output Total 2455 ml Balance -960 ml Microbiology Microbiology 09/02/18 Group B Streptococcus Screen (JESSE), Received Pending Discharge Medications Scheduled (Sertraline HCl) 25 Mg Tab, 3 TAB PO DAILY, (Reported) Ferrous Sulfate (Ferosul) 325 Mg Tab, 1 TAB PO TID, (Reported) Multivitamins/ ( ) 1 Chw Chw, 1 TAB PO DAILY, (Reported) Allergies Coded Allergies: No Known Drug Allergy (Verified Allergy, Unknown, 12/19/13) SESSIONS,STEFFEN Murcia MD Sep 04, 2018 07:35
--- NOTE | 2018-09-04 07:37 | IPNPDOC ---
Text Note Date of Service The patient was seen on 09/04/18. NOTE a/p Emergent PLTCS and GETA POD1 States feeling well, pain controlled with prescribed meds. Baby bonding and feeding well. No heavy VB. Lochia slowing. Ambulatory. Tolerating PO without issues. Voiding spont. No CP/LP/SOB. VSSAF NAD A&O Incision bandage clean/dry LE no C/C/E Ut at U-2, firm, appropr tenderness UO adequate CBC pending this AM a/p: Doing well. Cont routine postop/ care. D/C today so can be with baby in [place]. Sessions VS,Cherri, I+O VSCherri, I+O Vital Signs Date Time Temp Pulse Resp B/P (MAP) Pulse Ox O2 Delivery O2 Flow Rate FiO2 09/04/18 06:35 16 09/04/18 05:47 97.7 104 112/59 (76) 100 09/03/18 03:06 2.0 I&O- Last 24 Hours up to 6 AM 09/04/18 06:00 Intake Total 1495 ml Output Total 2455 ml Balance -960 ml SESSIONS,STEFFEN Murcia MD Sep 04, 2018 07:37
[2018-09-04] MEDS ORDERED: IBUP-1114 PO (08:07)
[2018-09-04] MEDS ORDERED: OXYC1TAB23 PO (08:07)
[2018-09-04] MEDS: DOCUSATE SODIUM 100 MG CAP PO SCH (08:18)
[2018-09-04] MEDS: PRENATAL VITAMINS CHEWABLE TABLET PO SCH (08:18)
[2018-09-04 08:26] LABS: HEMATOCRIT 20.1 % (36.0-47.0); MEAN CORPUSCULAR HEMOGLOBIN 21.9 pg (27.0-33.0); MEAN CORPUSCULAR HGB CONC 32.8 g/dl (32.0-36.5); MEAN CORPUSCULAR VOLUME 66.8 fl (80.0-96.0); PLATELET COUNT, AUTOMATED 129 10^3/uL (150-450); RED BLOOD COUNT 3.01 10^6/uL (4.00-5.40); WHITE BLOOD COUNT 18.9 10^3/uL (4.0-10.0)
[2018-09-04 08:30] LABS: HEMOGLOBIN 6.6 g/dl (12.0-15.5)
[2018-09-04] MEDS ORDERED: PILL CRUSHER/CUTTER 1 EACH XX PRN (08:45)
[2018-09-04] MEDS ORDERED: SERTRALINE HCL 50 MG TAB PO SCH (09:00)
== END 2018-09-04 09:00 | disposition home or self-care (01) | DRG 771 ==
LOC: M LDO 22:31 → M LDI 22:56 → M OBS 09-03 06:14
PROVIDERS: ADMIT Obstetrics & Gynecology; ATTEND Obstetrics & Gynecology
PROC: 10D00Z1 Extraction of Products of Conception, Low, Open Approach (ICD-10-PCS; principal; 2018-09-03 01:31)
DX: O60.14X0 Preterm labor third trimester with preterm delivery third trimester, not applicable or unspecified (principal); O44.12 Complete placenta previa with hemorrhage, second trimester; O41.03X0 Oligohydramnios, third trimester, not applicable or unspecified; Z37.0 Single live birth; Z3A.39 39 weeks gestation of pregnancy; O36.5930 Maternal care for other known or suspected poor fetal growth, third trimester, not applicable or unspecified; E66.9 Obesity, unspecified; O99.214 Obesity complicating childbirth; Z68.32 Body mass index [BMI] 32.0-32.9, adult; O24.425 Gestational diabetes mellitus in childbirth, controlled by oral hypoglycemic drugs; F41.9 Anxiety disorder, unspecified; F32.9 Major depressive disorder, single episode, unspecified; O99.344 Other mental disorders complicating childbirth; O76 Abnormality in fetal heart rate and rhythm complicating labor and delivery

== ENCOUNTER 2019-01-31 12:23 | Emergency (ER) | payer OTHER ==
[~2019-01-31] VITALS: Ht 154.9 cm; Wt 81.8 kg
[~2019-01-31 12:23] MED LIST changes: +IBUP-1114 PO; +OXYC1TAB23 PO; +SERT25TA21 PO; -SERT25TA88 PO
[2019-01-31 13:13] LABS: BASO # 0.1 10^3/uL (0.0-0.2); BASO % 0.7 % (0.0-1.0); EOS # 0.1 10^3/uL (0.0-0.50); EOS % 1.3 % (0.0-3.0); HEMATOCRIT 36.1 % (36.0-47.0); HEMOGLOBIN 11.9 g/dl (12.0-15.5); MEAN CORPUSCULAR HEMOGLOBIN 19.5 pg (27.0-33.0); MEAN CORPUSCULAR VOLUME 59.2 fl (80.0-96.0); MONO # 0.8 10^3/uL (0.0-0.8); MONO % 7.7 % (0.0-5.0); NEUTROPHILS # 7.1 10^3/uL (1.8-7.7); NEUTROPHILS % 70.1 % (36.0-66.0); PLATELET COUNT, AUTOMATED 259 10^3/uL (150-450); WHITE BLOOD COUNT 10.1 10^3/uL (4.0-10.0)
[2019-01-31 13:24] LABS: INR 1.03; PROTHROMBIN TIME 13.2 SECONDS (11.8-14.0)
[2019-01-31] MEDS ORDERED: GI COCKTAIL 50ML BTL(HYOSCYAMINE/MAALOX/LIDOCAINE VISCOUS)(1:3:1) PO ONE (13:30)
[2019-01-31 13:38] LABS: ALBUMIN 4.3 GM/DL (3.2-5.2); ALT/SGPT 31 U/L (12-78); BILIRUBIN,TOTAL 0.8 MG/DL (0.2-1.0); BLOOD UREA NITROGEN 11 MG/DL (7-18); CALCIUM LEVEL 9.6 MG/DL (8.5-10.1); CARBON DIOXIDE LEVEL 27 MEQ/L (21-32); CHLORIDE LEVEL 104 MEQ/L (98-107); CK-MB VALUE MASS < 1.0 NG/ML (<3.6); CPK CREATINE PHOSPHOKINASE 111 U/L (26-192); CREATININE FOR GFR 0.82 MG/DL (0.55-1.30); GLOMERULAR FILTRATION RATE > 60.0 (>60); GLUCOSE, FASTING 110 MG/DL (70-100); LIPASE 288 U/L (73-393); POTASSIUM SERUM 3.9 MEQ/L (3.5-5.1); SODIUM LEVEL 138 MEQ/L (136-145); TOTAL PROTEIN 8.7 GM/DL (6.4-8.2); TROPONIN I < 0.02 NG/ML (< 0.10)
--- NOTE | 2019-01-31 13:45 | REP ---
REASON: Chest pain. COMPARISON: 12/19/2013 FINDINGS: The technique utilized in obtaining the radiograph has magnified the cardiac silhouette and accentuated the interstitial markings. The superior mediastinal structures are midline. The cardiac silhouette is unremarkable in size, shape, and position. The diaphragmatic surfaces of the lungs are regular, and the costophrenic angles are clear. The pulmonary workman are clear. The imaged osseous structures are intact. IMPRESSION: There is no acute cardiopulmonary disease. Electronically Signed by Steve De Dios DO 01/31/2019 02:20 P
[2019-01-31] MEDS ORDERED: PRIL20TA2 PO (14:36)
[2019-01-31 14:44] VITALS: BP 123/76
--- NOTE | 2019-01-31 20:08 | ECGEPIP ---
[facility] - ED Test Date: 2019-01-31 Pat Name: EVAN JURADO Department: Room: - Gender: Female Tool Designer: : 1990 Requested By: Lizbeth Jacome Order Number: [id number] Reading MD: Lizbeth Jacome Measurements Intervals [place] Rate: 87 P: 37 MA: 139 QRS: 35 QRSD: 79 T: 43 QT: 395 QTc: 476 Interpretive Statements SINUS RHYTHM NONSPECIFIC ST T WAVE CHANGES PROLONGED QTC DELAYED R WAVE PROGRESSION CW 05/24/[address] T WAVE CHANGES Electronically Signed on 01-31-2019 20:08:51 EDT by Lizbeth Jacome
== END 2019-01-31 15:00 | disposition home or self-care (01) ==
LOC: EDSEX 12:23 → EDBD 12:23 → M ED 12:23
DX: R07.89 Other chest pain (principal); Z79.899 Other long term (current) drug therapy

== ENCOUNTER → 2019-02-20 | Outpatient (CLI) | payer OTHER, SELFPAY ==
[~2019-02-20] MED LIST changes: +CEFD300CAP PO; +IBUP80TA PO; +PRIL20TA2 PO; +ZITHTAB PO; +[UNRECOGNIZED DRUG - CODE] MT
--- NOTE | 2019-02-22 08:23 | REP ---
Right hand five views : There is no fracture or dislocation. Mineralization and joint spaces are normal. There are no calcifications or foreign bodies. Impression: Negative right hand . Electronically Signed by Tito Galeano MD 02/20/2019 02:20 P
== END ==
LOC: M LRY 14:00
PROVIDERS: ATTEND Physician Assistant
DX: M79.641 Pain in right hand (principal)

== ENCOUNTER → 2019-05-22 | Outpatient (REF) | payer OTHER ==
[~2019-05-22] MED LIST changes: -CEFD300CAP PO; -IBUP80TA PO; -ZITHTAB PO; -[UNRECOGNIZED DRUG - CODE] MT
== END ==
LOC: M SFHCLERA 11:29
PROVIDERS: ATTEND Physician Assistant
DX: R30.0 Dysuria (principal)

== ENCOUNTER 2019-06-23 08:10 | Emergency (ER) | payer OTHER ==
[~2019-06-23] VITALS: Ht 154.9 cm; Wt 75.0 kg
[2019-06-23] MEDS ORDERED: ALBUTEROL SULFATE 2.5 MG/0.5 ML INH NEB SOLN INH ONE (08:30)
[2019-06-23] MEDS ORDERED: ACETAMINOPHEN TAB 650MG DOSE (2X325MG) PO ONE (08:30)
[2019-06-23 09:00] LABS: BASO # 0.1 10^3/uL (0.0-0.2); BASO % 0.5 % (0.0-1.0); HEMATOCRIT 39.7 % (36.0-47.0); HEMOGLOBIN 12.6 g/dl (12.0-15.5); LYMPH # 1.9 10^3/uL (1.5-5.0); LYMPH % 7.3 % (24.0-44.0); MEAN CORPUSCULAR HEMOGLOBIN 19.1 pg (27.0-33.0); MEAN CORPUSCULAR HGB CONC 31.7 g/dl (32.0-36.5); MEAN CORPUSCULAR VOLUME 60.2 fl (80.0-96.0); MONO # 1.5 10^3/uL (0.0-0.8); MONO % 5.9 % (0.0-5.0); NEUTROPHILS # 22.3 10^3/uL (1.5-8.5); NEUTROPHILS % 85.8 % (36.0-66.0); PLATELET COUNT, AUTOMATED 199 10^3/uL (150-450); RED BLOOD COUNT 6.59 10^6/uL (4.00-5.40)
[2019-06-23 09:11] LABS: ALBUMIN 3.7 GM/DL (3.2-5.2); ALT/SGPT 45 U/L (12-78); BILIRUBIN,DIRECT 0.2 MG/DL (0.0-0.2); BILIRUBIN,TOTAL 0.8 MG/DL (0.2-1.0); BLOOD UREA NITROGEN 10 MG/DL (7-18); CALCIUM LEVEL 8.9 MG/DL (8.5-10.1); CARBON DIOXIDE LEVEL 23 MEQ/L (21-32); CHLORIDE LEVEL 105 MEQ/L (98-107); CREATININE FOR GFR 0.86 MG/DL (0.55-1.30); GLOMERULAR FILTRATION RATE > 60.0 (>60); GLUCOSE, FASTING 116 MG/DL (70-100); POTASSIUM SERUM 3.7 MEQ/L (3.5-5.1); SODIUM LEVEL 139 MEQ/L (136-145); TOTAL PROTEIN 8.7 GM/DL (6.4-8.2)
--- NOTE | 2019-06-23 09:12 | REP ---
Clinical: Right-sided chest pain. Technique: PA and lateral. Comparison: 01/31/2019. Findings: Right upper lobe infiltrate compatible with acute pneumonia. Mediastinum and cardiac silhouette normal. Remainder of lung workman are clear. No effusion. No pneumothorax. Skeletal structures intact. Impression: Right upper lobe pneumonia. Electronically Signed by Isidro Rahman MD 06/23/2019 09:04 A
[2019-06-23] MEDS ORDERED: NS 1,000 ML IV ONE ×2 (09:30→10:30)
[2019-06-23] MEDS ORDERED: AZITHROMYCIN 250 MG TAB PO ONE (09:30)
[2019-06-23] MEDS ORDERED: cefTRIAXone SOD 1 GM in D5W MINI-BAG PLUS 50 ML IV ONE (09:30)
[2019-06-23 10:06] LABS: INFLUENZA A AMPLIFICATION NEGATIVE (NEGATIVE); INFLUENZA B AMPLIFICATION NEGATIVE (NEGATIVE)
[2019-06-23] MEDS ORDERED: KETOROLAC 30 MG/ML VIAL (J1885) IV ONE (11:15)
[2019-06-23 15:08] VITALS: BP 115/73
[2019-06-23] MEDS ORDERED: CEFD300CAP PO (15:18)
[2019-06-23] MEDS ORDERED: ZITHTAB PO (15:18)
[2019-06-24] MEDS ORDERED: [UNRECOGNIZED DRUG - CODE] MT (11:41)
[2019-06-24] MEDS ORDERED: IBUP80TA PO (11:41)
[2019-06-24] MEDS ORDERED: FERR325T18 PO (11:41)
== END 2019-06-23 15:25 | disposition home or self-care (01) ==
LOC: EDBD 08:10 → M ED 08:10
DX: J18.1 Lobar pneumonia, unspecified organism (principal); J02.9 Acute pharyngitis, unspecified; F41.9 Anxiety disorder, unspecified; F33.9 Major depressive disorder, recurrent, unspecified; K21.9 Gastro-esophageal reflux disease without esophagitis
CPT/HCPCS: 71046; 80048; 80076; 83605; 84702; 85025; 87040; 87502; 94640; 96365; 96375; 99285; J0696; J1885

== ENCOUNTER 2019-06-24 11:28 | Emergency (ER) | payer OTHER ==
[~2019-06-24] VITALS: Ht 154.9 cm; Wt 75.0 kg
[~2019-06-24 11:28] MED LIST changes: +CEFD300CAP PO; +ZITHTAB PO
[2019-06-24] MEDS ORDERED: FERR325T18 PO (11:41)
[2019-06-24] MEDS ORDERED: IBUP80TA PO (11:41)
[2019-06-24] MEDS ORDERED: [UNRECOGNIZED DRUG - CODE] MT (11:41)
[2019-06-24] MEDS ORDERED: AZITHROMYCIN 250 MG TAB PO ONE (12:15)
[2019-06-24] MEDS ORDERED: ACETAMINOPHEN TAB 650MG DOSE (2X325MG) PO ONE (12:15)
[2019-06-24] MEDS ORDERED: CEFDINIR 300 MG CAP (OMNICEF) PO ONE (12:15)
[2019-06-24 12:19] LABS: HEMATOCRIT 35.8 % (36.0-47.0); HEMOGLOBIN 11.5 g/dl (12.0-15.5); MEAN CORPUSCULAR HEMOGLOBIN 19.1 pg (27.0-33.0); MEAN CORPUSCULAR HGB CONC 32.1 g/dl (32.0-36.5); MEAN CORPUSCULAR VOLUME 59.5 fl (80.0-96.0); PLATELET COUNT, AUTOMATED 211 10^3/uL (150-450); RED BLOOD COUNT 6.02 10^6/uL (4.00-5.40); WHITE BLOOD COUNT 17.6 10^3/uL (4.0-10.0)
[2019-06-24 12:43] LABS: ATYPICAL LYMPH 1 % (0-5); LYMPHOCYTES 14 % (16-44); MONOCYTES 9 % (0-5); NEUTROPHILS 73 % (28-66)
[2019-06-24 12:46] LABS: PLATELET ESTIMATE NORMAL (NORMAL); TARGET CELLS 2+
[2019-06-24 12:47] LABS: ANISOCYTOSIS 1+; MICROCYTOSIS 2+; POIKILOCYTOSIS 1+
[2019-06-24 12:58] LABS: BLOOD UREA NITROGEN 6 MG/DL (7-18); CALCIUM LEVEL 8.8 MG/DL (8.5-10.1); CARBON DIOXIDE LEVEL 27 MEQ/L (21-32); CHLORIDE LEVEL 105 MEQ/L (98-107); CREATININE FOR GFR 0.79 MG/DL (0.55-1.30); GLOMERULAR FILTRATION RATE > 60.0 (>60); GLUCOSE, FASTING 125 MG/DL (70-100); POTASSIUM SERUM 3.6 MEQ/L (3.5-5.1); SODIUM LEVEL 139 MEQ/L (136-145)
[2019-06-24 13:26] VITALS: BP 120/76
== END 2019-06-24 13:21 | disposition home or self-care (01) ==
LOC: M ED 11:28
DX: J18.1 Lobar pneumonia, unspecified organism (principal); Z79.2 Long term (current) use of antibiotics; Z79.899 Other long term (current) drug therapy

== ENCOUNTER → 2021-03-28 | Outpatient (CLI) | payer OTHER ==
[~2021-03-28] MED LIST changes: +IBUP80TA PO; +[UNRECOGNIZED DRUG - CODE] MT
--- NOTE | 2021-03-28 17:51 | REPVR ---
PROCEDURE INFORMATION: Exam: MR Cervical Spine Without Contrast Exam date and time: 03/28/2021 4:49 PM Age: 31 years old Clinical indication: Neck pain; Additional info: Lbp / cervicalgia TECHNIQUE: Imaging protocol: Multiplanar magnetic resonance images of the cervical spine without contrast. COMPARISON: CR Chest, 2 view PA, Lat 06/23/2019 8:54 AM FINDINGS: Limitations: Examination is limited by motion artifact. Cervical vertebral body heights are intact. Cervical lordosis is maintained. The dens is intact. Disc space heights are unremarkable. No abnormal marrow signal. No definite evidence of cord compression, expansion, or abnormal cord signal. Visualized structures of the posterior fossa are unremarkable. No significant areas of canal or foraminal narrowing, though overall limited evaluation due to motion artifact. Soft tissues are unremarkable. IMPRESSION: No acute findings in the cervical spine, within the limitations of the examination. Electronically signed by: Neville Bethea On 03/28/2021 17:51:36 PM
--- NOTE | 2021-03-28 17:53 | REPVR ---
PROCEDURE INFORMATION: Exam: MR Lumbar Spine Without Contrast Exam date and time: 03/28/2021 5:19 PM Age: 31 years old Clinical indication: Pain; Lumbago; Additional info: Lbp / cervicalgia TECHNIQUE: Imaging protocol: Multiplanar magnetic resonance images of the lumbar spine without intravenous contrast. COMPARISON: CR Abdomen,Flat Plate KUB 09/03/2018 1:01 AM FINDINGS: Lumbar vertebral body heights are maintained. No abnormal marrow signal. No cord compression. No abnormal cord signal. Conus medullaris terminates at the L1 level. Epidural lipomatosis at L5-S1 narrows the spinal canal, of unknown clinical significance. Otherwise no significant areas of canal or foraminal narrowing throughout the remainder of the lumbar spine. Paravertebral soft tissues are unremarkable. IMPRESSION: Epidural lipomatosis at L5-S1 narrows the spinal canal, of unknown clinical significance. Otherwise, no acute findings. Electronically signed by: Neville Bethea On 03/28/2021 17:53:31 PM
== END ==
LOC: M RAD 15:44
PROVIDERS: ATTEND Family Medicine
DX: M54.16 Radiculopathy, lumbar region (principal); M54.2 Cervicalgia